=== PATIENT | male | born 1950 | race Caucasian/White ===

== ENCOUNTER 2022-07-20 11:28 | Day surgery (SDC) | payer MEDICARE, BC, SELFPAY ==
[2022-07-20] VITALS (10 sets, daily range): BP systolic 98–122; BP diastolic 62–81; PULSE 68–86; RESP 10–16; TEMP 36.1–36.6; O2SAT 94–97; BMI 24.7
[2022-07-20] MEDS: LACTATED RINGERS 1000 ML 1,000 ML 100 ML IV (12:00)
[2022-07-20] MEDS: SODIUM CHLORIDE 0.9 % (FLUSH) 10 ML SYRINGE IVF (12:28)
[2022-07-20] MEDS: CEFAZOLIN 2 GM INJ IVP (13:52)
[2022-07-20] MEDS: BUPIVACAINE 0.25% 30 ML INJECTION (14:46)
--- NOTE | 2022-07-20 15:01 | P.GSOP_ITS ---
Operative Note Date of procedure: 07/20/22 Type of Procedure: 1. Open Left inguinal hernia repair with mesh. Procedure Description: After discussing the risks and benefits of the procedure, the patient signed informed consent.? The operative site was marked and the patient was brought to the operating room and placed on the operating table in supine position.? Care was taken to pad the patient's pressure points.?? The patient was then intubated by anesthesia.?? The operative site was then prepped and draped in the usual sterile fashion.? A time-out was then performed. ? Surgical site was prepped and draped in sterile fashion in the left groin. Site of the incision was marked with a marking pen and local anesthetic was injected. An oblique incision was made just above and medial to the left inguinal ligament. Subcutaneous tissue was dissected to external obliques. Superficial subcutaneous vascular branches were clamped, divided and tied with 3-0 Vicryl ties. Small incision was made through the external oblique aponeurosis with scalpel. I then used Metzenbaum scissors to dissect under external obliques and extend my incision. Mosquito clamps were placed on the edges of external oblique exposing the inguinal floor. Ilioinguinal nerve was identified and was going through the plain of dissection. The nerve was divided proximally and distally and a 3 cm segment of it was excised. This was not sent to pathology. I then identified the spermatic cord and the hernia sac. I bluntly dissected subcutaneous tissues in order to place Varun drain around the cord structures. Cremasteric fibers were peeled off and dissected off the hernia sac and cord structures. There was presence of indirect inguinal hernia. Inguinal floor was also weak suggestive of direct hernia. The indirect hernia sac was from the spermatic cord bluntly and with cautery. The indirect hernia sac was incised and examined from the inside. No intraabdominal organs were incarcerated in the hernia sac. A stitch using 3-0 Vicryl was placed near the base of the hernia sac through the sac and the hernia sac tied off. Hernia sac was then excised and not sent to pathology. This was then pushed into preperitoneal space through the internal ring. Surgical field was examined for bleeding and hemostasis was achieved with cautery and Vicryl ties. A ProLoop mesh plug was inserted through the internal ring and secured to the adjacent tissues with interrupted 0-0 Neurolon sutures. A Bard mesh onlay was then used for hernia repair. The mesh onlay was sutured in place with interrupted 0-0 Neurolon sutures to the conjoint tendon medially and shelving edge laterally, pubic tubercle inferiorly. Simple interrupted sutures were placed using 0-0 Neurolon at the base of internal inguinal ring making it only large enough to fit a tip of one finger through. Spermatic cord was placed back into scrotum. Drifton drain was removed. External oblique aponeurosis was closed with a running 3-0 Vicryl. Additional local anesthetic was injected into subcutaneous tissues. Tess's fascia and subcutaneous tissue was re- approximated with interrupted Vicryl stitches. Skin incision was closed with 4-0 Monocryl subcuticular stitch. Steri strips and sterile dressing were applied over incision. All counts were correct at the end of the case. Patient tolerated this procedure well and was transferred to PACU in stable condition. Findings: Indirect hernia sac and weak inguinal floor. Anesthesia: GETA Surgeon: Agustín Cha MD Condition: stable Disposition: PACU
--- NOTE | 2022-07-20 15:18 | W.ANESCHARGE ---
Anesthesia Charges Start Date/Time Anesthesia Start Date: 07/20/22 Anesthesia Start Time: 13:42 Stop Date/Time Anesthesia Stop Date: 07/20/22 Anesthesia Stop Time: 15:16 Summary Emergency: No
--- NOTE | 2022-07-20 15:32 | W.ANESCHARGE ---
Anesthesia Charges Start Date/Time Anesthesia Start Date: 07/20/22 Anesthesia Start Time: 13:42 Stop Date/Time Anesthesia Stop Date: 07/20/22 Anesthesia Stop Time: 15:16 Summary Emergency: No
[2022-07-20] MEDS: HYDROCODONE-ACETAMIN 5-325 MG 1 TAB PO (16:28)
--- NOTE | 2022-07-20 16:35 | SUR.PHASEII ---
left inguinal dressing c/d/i
== END 2022-07-20 16:36 | disposition home or self-care (01) ==
PROVIDERS: PCP Surgery; Visit Provider Surgery
PROC: (CPT 49505; principal; 2022-07-20 12:45)
DX: K40.90 Unilateral inguinal hernia, without obstruction or gangrene, not specified as recurrent (principal)
CPT/HCPCS: 49505; 00830; A9270; C1781; J0330; J0690; J1100; J1885; J2250; J2405; J2704; J3010; J3490; J7120

== ENCOUNTER 2023-03-26 16:07 | Emergency (ER) | payer MEDICARE, BC, SELFPAY ==
[2023-03-26] VITALS (10 sets, daily range): BP systolic 106–128; BP diastolic 69–83; PULSE 82–103; RESP 18–20; TEMP 37.3–39; O2SAT 89–91; BMI 24.6
--- NOTE | 2023-03-26 16:32 | CRLHL7_ITS ---
For Patients: As a result of the Cures Act, medical imaging exams and procedure reports are released immediately into your electronic medical record. You may view this report before your referring provider. If you have questions, please contact your health care provider. Indication: Fever and cough Comparison: None available. Technique: Single AP view chest Findings: There is hyperinflation and chronic interstitial change. There is airspace opacification of the left lower lobe consistent with developing infiltrate. There is no pneumothorax or pleural effusion. The cardiomediastinal silhouette is within normal limits. The bony thorax is grossly intact. Impression: Airspace opacification of the left lower lobe consistent with developing infiltrate. Dictated by Mode Lebron MD @ 03/26/2023 5:56:39 PM (Electronically Signed)
[2023-03-26 16:51] LABS: Eosinophils Absolute Auto 0.05 K/uL (0.00-0.50); Eosinophils Percent Auto 0.9 % (0.0-7.0); Hematocrit 40.7 % (37.0-53.0); Hemoglobin* 13.7 gm/dL (13.5-17.5); Immature Granulocytes Abs Auto 0.01 K/uL (0.00-0.30); Immature Granulocytes Pct Auto 0.2 %; Lymphocytes Percent Auto 9.3 % (20-44); Mean Corpuscular HGB Conc 34 gm/dL (32-36); Mean Corpuscular Hemoglobin 30 pg (26-34); Mean Corpuscular Volume 90 fL (80-100); Monocytes Percent Auto 15.5 % (0.0-11.0); Neutrophils Percent Auto 74.1 % (42.0-72.0); Platelet Count* 147 K/uL (140-440); RDW Coefficient of Variation % 13.3 % (11.5-15.5); Red Blood Count 4.51 m/uL (4.30-5.90); White Blood Count* 5.79 K/uL (4.50-11.00)
[2023-03-26 16:52] LABS: Slide Review Reflex No
[2023-03-26] MEDS: 0.9 % SODIUM CHLORIDE 1000 ml 1,000 ML IV (16:53)
[2023-03-26] MEDS: ACETAMINOPHEN 500 MG TABLET 1000 MG PO (16:53)
--- NOTE | 2023-03-26 17:00 | ED_ITS ---
HPI - General Adult General Date Seen: 03/26/23 Chief complaint: Cough Stated complaint: fever, sick for the last 4 days Time Seen by Provider: 03/26/23 16:13 Source: patient Mode of arrival: ambulatory Limitations: no limitations History of Present Illness HPI narrative: Patient is a 72-year-old, generally healthy male here with his for evaluation of fever and cough which started yesterday. He has had fatigue, headache as well. He has not felt significantly short of breath, denies chest pain. He has not had any vomiting or diarrhea. No unusual leg pain or swelling. No one else at home has been sick. He is occasionally coughing up some sputum although less so today than yesterday. Not coughing up any blood. He denies any prior pulmonary disease such as asthma or COPD. He does not smoke. Drinks rarely. No significant systemic disease such as diabetes, hypertension, heart disease. Related Data Home Medications Medication Instructions Recorded Confirmed mometasone 50 mcg/actuation nasal 2 spray intranasal DAILY 07/20/22 03/26/23 spray oxybutynin chloride 5 mg 5 mg PO ONCE HS 07/20/22 03/26/23 tablet,extended release 24 hr tamsulosin 0.4 mg capsule 0.4 mg PO Q24H 07/20/22 03/26/23 Previous Rx's Medication Instructions Recorded hydrocodone 5 mg-acetaminophen 325 1 - 2 tab PO Q6H PRN pain #20 tabs 07/20/22 mg tablet Allergies Allergy/AdvReac Type Severity Reaction Status Date / Time No Known Drug Allergies Allergy Verified 03/26/23 16:21 Review of Systems Status of ROS: Reports: 10 or more systems reviewed and unremarkable except as noted in History and below PFSH [facility] Medical History Nasal congestion ?R09.81 - Nasal congestion (ICD-10) Adenomatous colon polyp ?D12.6 - Benign neoplasm of colon, unspecified (ICD-10) Benign prostatic hyperplasia without lower urinary tract symptoms ?N40.0 - Benign prostatic hyperplasia without lower urinary tract symptoms (ICD-10) Sleep apnea, unspecified ?G47.30 - Sleep apnea, unspecified (ICD-10) Social History Smoking Status: Never smoker How often do you have a drink containing alcohol: 2-4 times a month How many standard drinks containing alcohol do you have on a typical day: 1 or 2 How often do you have six or more drinks on one occasion: Never AUDIT-C Alcohol total score: 2 Non-prescribed substance use: denies use Caffeine: No Exam Narrative: Exam Narrative: Vital signs as noted above. In general, an alert, well-appearing patient. Head: Normocephalic, atraumatic. Eyes: Pupils are equal reactive. Extraocular movements are full. Conjunctivae are normal. ENT: Mucous membranes are moist. Throat is normal. Neck: Supple without lymphadenopathy. Heart: Regular rate and rhythm. No murmur or rub. Lungs: Bibasilar rales, no wheezes. No increased work of breathing. Abdomen: Soft and nontender. No organomegaly. Extremities: Well perfused. No edema. No calf tenderness. Pulses intact. Neurologic: Patient is alert and oriented to person and place. Speech is fluent. Face is symmetric. Moves all extremities equally. Affect: Normal. Skin: Warm and dry. Well perfused. Const: Vital Signs, click to edit/add: Vital Signs - 24 hr 03/26/23 16:16 03/26/23 17:17 03/26/23 17:30 Temperature 102.2 F H Pulse Rate 98 92 Pulse Rate [Left P ulse Oximeter] 103 H Respiratory Rate 20 Blood Pressure Blood Pressure [Ri ght Upper Arm] 128/83 Pulse Oximetry 90 91 90 Oxygen Delivery Me thod Room Air Room Air Room Air 03/26/23 17:31 03/26/23 17:32 03/26/23 17:45 Temperature Pulse Rate 99 94 93 Pulse Rate [Left P ulse Oximeter] Respiratory Rate 20 Blood Pressure 106/71 Blood Pressure [Ri ght Upper Arm] Pulse Oximetry 90 90 89 Oxygen Delivery Me thod Room Air 03/26/23 18:00 03/26/23 18:01 03/26/23 18:12 Temperature 99.2 F Pulse Rate 87 90 Pulse Rate [Left P ulse Oximeter] Respiratory Rate 18 Blood Pressure 112/69 Blood Pressure [Ri ght Upper Arm] Pulse Oximetry 91 [facility] 03/26/23 18:15 Temperature Pulse Rate 82 Pulse Rate [Left P ulse Oximeter] Respiratory Rate Blood Pressure Blood Pressure [Ri ght Upper Arm] Pulse Oximetry 89 Oxygen Delivery Me thod Documenting provider has reviewed patient's vital signs: yes Course Course Hospital Course: Patient is given Tylenol, he has not taken anything for fever today. An IV is established in will give a L of normal saline as well. He is mildly tachycardic, blood pressure is normal. O2 sats when I was in there were 91-92% on room air. He is not showing any signs of respiratory distress. Diagnostic considerations include pneumonia, other viral upper respiratory infection, bronchitis, COVID, less likely PE, pulmonary edema/CHF given the relatively high fever. Labs are reassuring. White blood cell count is normal at 5.8. Hemoglobin is 13.7. Slight left shift with 74% neutrophils. Metabolic panel is normal. Blood sugars 148. LFTs are normal, total bilirubin is 0.8. CRP is elevated at 8.8. Urinalysis is notable for trace ketones, trace blood, read as showing 1% bilirubin but I suspect this is related to some concentration of the urine. No red cells or white cells. COVID is negative. Influenza is negative. Chest x- ray by my review showed infiltrate at the left base without consolidation. Final radiology read is as follows:Impression: Airspace opacification of the left lower lobe consistent with developing infiltrate. Nursing recorded some O2 sats in the 88-89% range, but the several times that I was in his room he was always 91-92%. Ambulatory he is 93-94% on room air. Clinically he looks well. He is low risk on the curb-65 score, scoring 1 point for age greater than 65. I think it is reasonable to let him go home. Discussed that if he is feeling worse, having worsening shortness of breath, lightheadedness, fainting, vomiting etcetera he should come back to the emergency department. I gave him a dose of Rocephin IV here and will discharge him home on doxycycline. Primary care follow-up next week for recheck. Vital Signs Vital signs: Initial Vital Signs Temperature 102.2 F H 03/26/23 16:16 Temperature Source Temporal Artery Scan 03/26/23 16:16 Pulse Rate 103 H 03/26/23 16:16 Respiratory Rate 20 03/26/23 16:16 Blood Pressure 128/83 03/26/23 16:16 Blood Pressure Mean 98 03/26/23 16:16 Blood Pressure Position Supine 03/26/23 16:16 Pulse Oximetry 90 03/26/23 16:16 Oxygen Delivery Method Room Air 03/26/23 16:16 Vital Signs Temperature 102.2 F H 03/26/23 16:16 Pulse Rate 103 H 03/26/23 16:16 Respiratory Rate 20 03/26/23 16:16 Blood Pressure 128/83 03/26/23 16:16 Pulse Oximetry 90 03/26/23 16:16 Oxygen Delivery Method Room Air 03/26/23 16:16 Temperature 99.2 F 03/26/23 18:12 Pulse Rate 82 03/26/23 18:15 Respiratory Rate 18 03/26/23 18:01 Blood Pressure 112/69 03/26/23 18:01 Pulse Oximetry 89 03/26/23 18:15 Oxygen Delivery Method Room Air 03/26/23 18:01 Medical Decision Making Lab Data Labs: Lab Results 03/26/23 03/26/23 03/26/23 Range/Units 16:25 16:43 18:00 WBC 5.79 (4.50-11.00) K/uL RBC 4.51 (4.30-5.90) m/uL Hgb 13.7 (13.5-17.5) gm/dL Hct 40.7 (37.0-53.0) % MCV 90 (80-100) fL MCH 30 (26-34) pg MCHC 34 (32-36) gm/dL RDW Coeff of Jessica 13.3 (11.5-15.5) % Plt Count 147 (140-440) K/uL Neut % (Auto) 74.1 H (42.0-72.0) % Lymph % (Auto) 9.3 L (20-44) % Wilkes % (Auto) 15.5 H (0.0-11.0) % Eos % (Auto) 0.9 (0.0-7.0) % Baso % (Auto) 0.0 (0.0-3.0) % Neut # (Auto) 4.30 (1.7-7.0) K/uL Lymph # (Auto) 0.50 L (0.90-2.90) K/uL Wilkes # (Auto) 0.90 (0.00-0.90) K/UL Eos # (Auto) 0.05 (0.00-0.50) K/uL Baso # (Auto) 0.00 (0.00-0.30) K/uL Sodium 135 (135-149) mmol/L Potassium 4.0 (3.6-5.1) mmol/L Chloride 102 (96-114) mmol/L Carbon Dioxide 25 (20-32) mmol/L BUN 18 (7-30) mg/dL Creatinine 0.9 (0.5-1.5) mg/dL Estimated Creat Clear 66.50 Estimated GFR 92 ml/min Glucose 148 H (60-115) mg/dL Calcium 8.4 (8.4-10.6) mg/dL Total Bilirubin 0.8 (0.1-1.5) mg/dL Direct Bilirubin 0.1 (0.0-0.5) mg/dL AST 28 (12-35) U/L ALT 22 (4-50) U/L Alkaline Phosphatase 55 (40-150) U/L Lactate Baseline 1.0 (0.5-1.9) mmol/L C-Reactive Protein 8.8 H (0.5-1.0) mg/dL Total Protein 7.0 (6.0-8.3) g/dL Albumin 2.0 L (3.3-5.0) g/dL Urine Color Ebony A (Yellow) Urine Appearance Clear (Clear) Urine pH 6.0 (5.0-8.5) Ur Specific Sarita 1.020 (1.000-1.030) Urine Protein 2+ A (Negative) Urine Glucose (UA) Negative (Negative) Urine Ketones Trace A (Negative) Urine Blood Trace-intact A (Negative) Urine Nitrite Negative (Negative) Urine Bilirubin 1+ A (Negative) Urine Urobilinogen >=8.0 A (0.2-1.0) Ur Leukocyte Esterase Negative (Negative) Urine RBC 0-2 (0-2) Urine WBC 0-2 (0-5) Ur Squamous Epith Cells None (None-Few) Urine Bacteria None (None) SARS-CoV-2 (PCR) Negative SARS-CoV-2 (Negative) Influenza Type A (PCR) Negative PCR FLU A (Negative) Influenza Type B (PCR) Negative PCR FLU B (Negative) RSV (PCR) Negative PCR RSV (Negative) Discharge Plan Discharge Clinical Impression: Pneumonia Patient Disposition: Home, Self-Care Condition: Stable Instructions: Pneumonia (ED) Additional Instructions: Antibiotic as prescribed. If at any time you have worsening shortness of breath, vomiting, weakness or fainting, or other worsening, return to the emergency department. Otherwise I would recommend recheck in clinic next week. Prescriptions: No Action oxybutynin chloride 5 mg tablet extended release 24hr 5 mg PO ONCE HS tamsulosin 0.4 mg capsule 0.4 mg PO Q24H mometasone 50 mcg/actuation spray,non-aerosol 2 spray intranasal DAILY Rx Instructions: administer into each nostril hydrocodone-acetaminophen 5-325 mg tablet 1 - 2 tab PO Q6H PRN (Reason: pain) Qty: 20 0RF Follow Up/Referrals: Hany Faulkner MD [Primary Care Provider] - Stand Alone Forms: [employer] Info Instructions
[2023-03-26 17:06] LABS: Chloride* 102 mmol/L (96-114)
[2023-03-26 17:07] LABS: Sodium* 135 mmol/L (135-149)
[2023-03-26 17:09] LABS: Bilirubin Direct* 0.1 mg/dL (0.0-0.5); Bilirubin Total* 0.8 mg/dL (0.1-1.5); Carbon Dioxide* 25 mmol/L (20-32); Creatinine* 0.9 mg/dL (0.5-1.5); Estimated Glomerular Filt Rate 92 ml/min
[2023-03-26 17:10] LABS: Alanine Aminotransferase* 22 U/L (4-50); Alkaline Phosphatase* 55 U/L (40-150); Aspartate Amino Transferase* 28 U/L (12-35); Blood Urea Nitrogen* 18 mg/dL (7-30); Calcium* 8.4 mg/dL (8.4-10.6); Glucose* 148 mg/dL (60-115)
[2023-03-26 17:12] LABS: C Reactive Protein* 8.8 mg/dL (0.5-1.0)
[2023-03-26 18:08] LABS: PCR FLU A Negative PCR FLU A (Negative); PCR FLU B Negative PCR FLU B (Negative); PCR RSV Negative PCR RSV (Negative)
[2023-03-26 18:11] LABS: SARS PCR* Negative SARS-CoV-2 (Negative)
[2023-03-26 18:12] LABS: Appearance Urine Clear (Clear); Bilirubin Urine 1+ (Negative); Blood Urine Trace-intact (Negative); Color Urine Amber (Yellow); Glucose Urine Negative (Negative); Ketones Urine Trace (Negative); Leukocyte Esterase Urine Negative (Negative); Nitrite Urine Negative (Negative); Protein Urine 2+ (Negative); Urobilinogen Urine >=8.0 (0.2-1.0)
[2023-03-26 18:23] LABS: RBC Urine 0-2 (0-2); WBC Urine 0-2 (0-5)
[2023-03-26] MEDS: cefTRIAXone 1 GM in 0.9 % SODIUM CHLORIDE Mini-bag 100 ML IVPB (18:54)
--- NOTE | 2023-03-26 18:57 | ED.NURSE ---
PT sats 89% on RA increased to 94% upon standing and stayed at 93% while ambulating hallway. Pt tolerated well.
== END 2023-03-26 19:50 | disposition home or self-care (01) ==
PROVIDERS: Emergency Provider Emergency Medicine; PCP Surgery
DX: J18.9 Pneumonia, unspecified organism (principal)
CPT/HCPCS: 36415; 71045; 80048; 80076; 81001; 83605; 85025; 86140; 87040; 87631; 96365; 99284; A9270; J0696; J7030

== ENCOUNTER 2023-12-09 18:47 | Emergency (ER) | payer MEDICARE, BC, SELFPAY ==
[2023-12-09 19:00] VITALS: BP 108/71; PULSE 89; RESP 20; TEMP 36.7; O2SAT 95; BMI 24.5
[2023-12-09 19:56] LABS: D Dimer Quantitative* 0.44 ug/ml (0.00-0.50)
--- NOTE | 2023-12-09 20:41 | ED_ITS ---
HPI - General Adult General Chief complaint: Unspecified Complaint, Adult Stated complaint: pneumonia+ Time Seen by Provider: 12/09/23 19:01 Source: patient and family Mode of arrival: ambulatory Limitations: no limitations History of Present Illness HPI narrative: 73-year-old male presenting today at the request of a the clinic. Patient has had a cough for about 2 weeks now. He was treated with amoxicillin in his symptoms he felt did not get better. He is now on day 10 of doxycycline. He states that he still has a cough but it is significantly improved. It is no longer productive and is no longer hacking constant cough that he had previously. He stated that when this all started he had several nights when he woke up sweating in the middle of the night. This has resolved. He also states that his appetite has been good. He is not having any shivering or chills. He was sent from the clinic with concerns of possible PE as patient recently came back from [place]. He was in [place] when his symptoms started. He denies chest pain or shortness of breath. He has no hypoxia or tachycardia. Chest x-ray done in the clinic today showed subtle parenchymal densities in the left infrahilar lung. Related Data Home Medications Medication Instructions Recorded Confirmed mometasone 50 mcg/actuation nasal 2 spray intranasal DAILY 07/20/22 12/09/23 spray oxybutynin chloride 5 mg 5 mg PO ONCE HS 07/20/22 12/09/23 tablet,extended release 24 hr tamsulosin 0.4 mg capsule 0.4 mg PO Q24H 07/20/22 12/09/23 fluoxetine 20 mg capsule 20 mg PO DAILY 12/09/23 12/09/23 Previous Rx's Medication Instructions Recorded benzonatate 200 mg capsule 200 mg PO TID PRN cough #60 caps 12/03/23 doxycycline hyclate 100 mg tablet 100 mg PO BID 10 days #20 tabs 12/03/23 Allergies Allergy/AdvReac Type Severity Reaction Status Date / Time No Known Drug Allergies Allergy Verified 12/03/23 12:04 Review of Systems Status of ROS: Reports: 10 or more systems reviewed and unremarkable except as noted in History and below [facility] Medical History Nasal congestion ?R09.81 - Nasal congestion (ICD-10) Adenomatous colon polyp ?D12.6 - Benign neoplasm of colon, unspecified (ICD-10) Benign prostatic hyperplasia without lower urinary tract symptoms ?N40.0 - Benign prostatic hyperplasia without lower urinary tract symptoms (ICD-10) Sleep apnea, unspecified ?G47.30 - Sleep apnea, unspecified (ICD-10) Surgical History History of right inguinal hernia repair ?Z98.890 - Other specified postprocedural states (ICD-10) ?Z87.19 - Personal history of other diseases of the digestive system (ICD-10) History of left inguinal hernia repair ?Z98.890 - Other specified postprocedural states (ICD-10) ?Z87.19 - Personal history of other diseases of the digestive system (ICD-10) H/O vasectomy ?Z98.52 - Vasectomy status (ICD-10) H/O exam under anesthesia with hemorrhoid banding ?Z98.890 - Other specified postprocedural states (ICD-10) ?Z87.19 - Personal history of other diseases of the digestive system (ICD-10) History of colonoscopy ?Z98.890 - Other specified postprocedural states (ICD-10) Social History Smoking Status: Never smoker Second hand tobacco smoke exposure: No How often do you have a drink containing alcohol: 2-4 times a month How many standard drinks containing alcohol do you have on a typical day: 1 or 2 How often do you have six or more drinks on one occasion: Never AUDIT-C Alcohol total score: 2 Non-prescribed substance use: denies use Caffeine: No Exam Narrative: Exam Narrative: Well-nourished well-developed patient in no acute distress. Alert and oriented. Answers questions appropriately. Mood and affect are appropriate. Thoughts are goal oriented and rational. No tangential or magical thinking noted. Patient speaks in full sentences without needing to catch their breath. HEENT: Normocephalic atraumatic. Pupils are equally round reactive to light. Extraocular muscles are intact. Conjunctivae are moist without any icterus noted. Moist mucous membranes. Posterior pharynx is normal. Neck is soft without any lymphadenopathy or thyromegaly. No masses are appreciated. Cardiovascular: Heart is regular rate and rhythm S1 and S2 are present without any murmurs. Lungs: Clear to auscultation on the right. The right mid lung has very mild crackles. Abdomen: Soft and nontender nondistended with normal bowel sounds. Extremities: Bilateral lower extremities are without edema. Skin: Well perfused without any obvious rashes. Const: Vital Signs, click to edit/add: Vital Signs - 24 hr 12/09/23 19:00 Temperature 98.0 F Pulse Rate [Right Pulse Oximeter] 89 Respiratory Rate 20 Blood Pressure [Ri ght Upper Arm] 108/71 Pulse Oximetry 95 Oxygen Delivery Me thod Room Air Course Course ED Course: I discussed with the patient that pneumonia can remain on the x-ray for quite some time that the cough can linger for multiple weeks before resolves but in general he sounds like he is improving and so I do not think that any further testing is necessary. My suspicion for a PE is very low given that aside from a cough, he is asymptomatic. There is also no evidence of vital sign abnormalities. The patient is quite concerned about the idea of a PE given his previous conversation with his provider. Therefore we decided to proceed with a D-dimer to rule out PE. D-dimer was normal at 0.44. Vital Signs Vital signs: Initial Vital Signs Temperature 98.0 F 12/09/23 19:00 Temperature Source Temporal Artery Scan 12/09/23 19:00 Pulse Rate 89 12/09/23 19:00 Respiratory Rate 20 12/09/23 19:00 Blood Pressure 108/71 12/09/23 19:00 Blood Pressure Mean 83 12/09/23 19:00 Blood Pressure Position Sitting 12/09/23 19:00 Pulse Oximetry 95 12/09/23 19:00 Oxygen Delivery Method Room Air 12/09/23 19:00 Vital Signs Temperature 98.0 F 12/09/23 19:00 Pulse Rate 89 12/09/23 19:00 Respiratory Rate 20 12/09/23 19:00 Blood Pressure 108/71 12/09/23 19:00 Pulse Oximetry 95 12/09/23 19:00 Oxygen Delivery Method Room Air 12/09/23 19:00 Temperature 98.0 F 12/09/23 19:00 Pulse Rate 89 12/09/23 19:00 Respiratory Rate 20 12/09/23 19:00 Blood Pressure 108/71 12/09/23 19:00 Pulse Oximetry 95 12/09/23 19:00 Oxygen Delivery Method Room Air 12/09/23 19:00 Medical Decision Making MDM Narrative Medical decision making narrative: 73-year-old male with recent pneumonia, recovering appropriately. Lab Data Lab results reviewed: Yes I reviewed the patient's lab results Labs: Lab Results 12/09/23 Range/Units 19:30 D-Dimer Quant (PE/DVT) 0.44 (0.00-0.50) ug/ml Discharge Plan Discharge Clinical Impression: Pneumonia Patient Disposition: Home, Self-Care Condition: Stable Additional Instructions: Your cough can linger for several weeks after you pneumonia has resolved. There was no evidence of a blood clot today. Finish antibiotic as prescribed. Okay to take the benzonatate as prescribed/as needed. Rest, stay well-hydrated any nutritious meals. Prescriptions: No Action doxycycline hyclate 100 mg tablet 100 mg PO BID 10 Days Qty: 20 0RF benzonatate 200 mg capsule 200 mg PO TID PRN (Reason: cough) Qty: 60 0RF fluoxetine 20 mg capsule 20 mg PO DAILY oxybutynin chloride 5 mg tablet extended release 24hr 5 mg PO ONCE HS tamsulosin 0.4 mg capsule 0.4 mg PO Q24H mometasone 50 mcg/actuation spray,non-aerosol 2 spray intranasal DAILY Rx Instructions: administer into each nostril Follow Up/Referrals: Hany Faulkner MD [Primary Care Provider] - Stand Alone Forms: [employer] Info Instructions
[2023-12-09 21:10] VITALS: BP 106/74; PULSE 85; RESP 20; TEMP 36.7; O2SAT 95
== END 2023-12-09 21:10 | disposition home or self-care (01) ==
PROVIDERS: Emergency Provider Family Medicine; PCP Surgery
DX: J18.9 Pneumonia, unspecified organism (principal)
CPT/HCPCS: 36415; 85379; 99283; 99284